=== PATIENT | female | born 1950 | race Caucasian/White ===

== ENCOUNTER 2017-05-04 14:17 | Emergency (ER) | payer MEDICARE, OTHER ==
[2017-05-04] MEDS ORDERED: Sodium Chloride 0.9% 10 ML Syringe FLUSH PRN (14:28)
[2017-05-04 14:29] VITALS: BP 149/91
--- NOTE | 2017-05-04 14:48 | CT ---
Head CT Technique: Multiple axial sections through the brain were obtained. Intravenous contrast was not utilized. Comparison: No previous intracranial imaging. Findings: Ventricles along with basal cisterns and sulci over convexities are mildly prominent. Slight basal ganglia calcification is seen. No other abnormal parenchymal densities are seen. No evidence of intracranial hemorrhage. No midline shift or mass effect is seen. Bone window settings were reviewed which shows no discrete calvarial abnormality. Visualized sinuses are clear. Impression: 1. Minimal atrophy and slight basal ganglia calcification as an incidental note. 2. Nothing acute is appreciated on noncontrast head CT exam. Diagnostic code #2
--- NOTE | 2017-05-04 15:09 | EDM.PDOC ---
ED HPI GENERAL MEDICAL PROBLEM - General Chief Complaint: Neurological Problem Stated Complaint: RIGHT ARM NUMBNESS Time Seen by Provider: 05/04/17 14:23 Source of Information: Reports: Patient, RN Notes Reviewed - History of Present Illness INITIAL COMMENTS - FREE TEXT/NARRATIVE: 66-year-old lady has been transferred here from [facility] for evaluation of numbness and weakness of her right hand. She has had numbness of the right hand for the last 2 days, she does have chronic weakness of the right hand and upper extremity from "a stroke suffered about 8 months ago. She feels that the hand also is weaker the last 2 days then prior to that. She does have mild headache today. She states she has had headaches that come and go. She is not having acute visual difficulty. No speech difficulty. She states she does have some very chronic right lower extremity weakness but not any worse than usual. She did see her provider at the clinic this afternoon. He did consult with neurosurgery at [facility] regarding urgent transfer. They would be glad to accept her in transfer but the current weather with near blizzard conditions does not allow that at this time. Headache Pain Score (Numeric/FACES): 4 - Related Data Allergies Allergy/AdvReac Type Severity Reaction Status Date / Time Penicillins Allergy Severe Rash Verified 01/24/14 09:39 diphenhydramine HCl AdvReac Severe Disorientat Verified 01/24/14 09:39 [From Benadryl] ion prochlorperazine edisylate AdvReac Severe Muscle Verified 01/24/14 09:39 [From Compazine] Aches prochlorperazine maleate AdvReac Severe Muscle Verified 01/24/14 09:39 [From Compazine] Aches Home Meds: Home Meds Albuterol Sulfate [Albuterol Sulfate HFA] 1 puff INH Q4H PRN 01/02/14 [History] Albuterol/Ipratropium [DuoNeb 3.0-0.5 MG/3 ML] 1 ampule INH Q6H PRN 01/02/14 [ History] Cholecalciferol (Vitamin D3) [Vitamin D3] 1,000 units PO DAILY 01/02/14 [History ] Citalopram Hydrobromide [Celexa] 40 mg PO DAILY 01/02/14 [History] ClonazePAM [KlonoPIN] 1 mg PO BEDTIME 01/02/14 [History] Fexofenadine [Kat] 180 mg PO DAILY PRN 01/02/14 [History] Fluticasone Propionate [Flonase] 1 spray ARINA BID 01/02/14 [History] Hydrocodone/Acetaminophen [Hydrocodone-Acetaminophen 5-325] 1 tab PO Q6H PRN 02/05 [History] Ketotifen [Ketotifen 0.025% Ophth Soln] 1 drop EYEBOTH BID 01/02/14 [History] Levothyroxine 25 mcg PO DAILY 01/02/14 [History] Mometasone/Formoterol [Dulera 200 MCG/5 MCG] 2 puff INH BID 01/02/14 [History] Montelukast [Singulair] 10 mg PO BEDTIME 01/02/14 [History] Pantoprazole [ProTONIX] 40 mg PO BID 01/02/14 [History] Simvastatin [Zocor] 80 mg PO BEDTIME 01/02/14 [History] traZODone 50 mg PO BEDTIME 01/02/14 [History] Ferrous Sulfate 325 mg PO BIDM 01/21/14 [History] Furosemide [Lasix] 60 mg PO DAILY 01/21/14 [History] Magnesium Oxide 400 mg PO BID 01/21/14 [History] Potassium Chloride [Klor-Con 10] 10 meq PO DAILY 01/21/14 [History] Past Medical History Respiratory History: Reports: Asthma, COPD Gastrointestinal History: Reports: GERD Musculoskeletal History: Reports: Arthritis Neurological History: Reports: TIA Endocrine/Metabolic History: Reports: Diabetes, Type II, Hypothyroidism - Past Surgical History GI Surgical History: Reports: Cholecystectomy Neurological Surgical History: Reports: Other (See Below) Other Neurological Surgeries/Procedures: stent placement 3 weeks ago Social & Family History - Tobacco Use Smoking Status *Q: Never Smoker Years of Tobacco use: 30 Used Tobacco, but Quit: Yes Month Tobacco Last Used: 3 yrs ago Second Hand Smoke Exposure: No - Caffeine Use Caffeine Use: Reports: Coffee - Alcohol Use Days Per Week of Alcohol Use: 0 Number of Drinks Per Day: 0 Total Drinks Per Week: 0 - Recreational Drug Use Recreational Drug Use: No Drug Use in Last 12 Months: No ED ROS GENERAL - Review of Systems Review Of Systems: See Below Constitutional: Denies: Fever, Chills, Diaphoresis HEENT: Denies: Sinus Problem, Throat Pain, Vertigo, Vision Change Respiratory: Denies: Shortness of Breath, Pleuritic Chest Pain Cardiovascular: Denies: Chest Pain, Palpitations, Syncope GI/Abdominal: Denies: Abdominal Pain, Nausea, Vomiting Musculoskeletal: Denies: Arm Pain, Back Pain Skin: Denies: Rash Neurological: Reports: Headache, Numbness (Comes and goes right hand and distal forearm for the last 3 days), Tingling (R hand and distal forearm), Weakness ( Right hand and arm), Gait Disturbance (Patient states that her right leg is weaker than normal, "I have been shuffling around"). Denies: Change in Speech Psychiatric: Reports: No Symptoms ED EXAM, NEURO - Physical Exam Exam: See Below General Appearance: Alert, No Apparent Distress Eye Exam: Bilateral Eye: PERRL Nose: Normal Inspection Throat/Mouth: Normal Inspection, Normal Oropharynx Head Exam: Atraumatic. No: Facial Swelling Neck: Supple Respiratory/Chest: No Respiratory Distress, Lungs Clear, Normal Breath Sounds Cardiovascular: Regular Rate, Rhythm GI/Abdominal: Soft, Non-Tender Neurological: Alert, Oriented x 3, Other (Mild weakness with right hand grasp at this time, good flexor strength right biceps, mild ataxia with finger-to- nose testing right hand compared to the left, can lift right hand and arm off of the caught without difficulty at this time, no demonstrable lower extremity weakness at this time.) Back Exam: Normal Inspection Extremities: Normal Inspection, Normal Range of Motion. No: Leg Pain Skin Exam: Warm, Dry, Normal Color Course - Vital Signs Last Recorded V/S: Last Vital Signs Temp 98 F 05/04/17 14:26 Pulse 94 05/04/17 14:26 Resp 21 H 05/04/17 14:26 BP 149/91 H 05/04/17 14:26 Pulse Ox 96 05/04/17 14:26 - Orders/Labs/Meds Labs: Laboratory Tests 05/04/17 05/04/17 05/04/17 Range/Units 14:26 14:30 14:30 WBC 5.16 (3.98-10.04) K/mm3 RBC 5.02 (3.98-5.22) M/mm3 Hgb 13.3 (11.2-15.7) gm/L Hct 41.8 (34.1-44.9) % MCV 83.3 (79.4-94.8) fl MCH 26.5 (25.6-32.2) pg MCHC 31.8 L (32.2-35.5) g/dl RDW Std Deviation 41.6 (36.4-46.3) fL Plt Count 233 (182-369) K/mm3 MPV 10.9 (9.4-12.3) fl Neut % (Auto) 70.7 (34.0-71.1) % Lymph % (Auto) 23.1 (19.3-51.7) % [place]quois % (Auto) 6.2 (4.7-12.5) % Eos % (Auto) 0 L (0.7-5.8) Baso % (Auto) 0.0 L (0.1-1.2) % Neut # (Auto) 3.65 (1.56-6.13) K/mm3 Lymph # (Auto) 1.19 (1.18-3.74) K/mm3 [place] # (Auto) 0.32 (0.24-0.36) K/mm3 Eos # (Auto) 0.00 L (0.04-0.36) K/mm3 Baso # (Auto) 0.00 L (0.01-0.08) K/mm3 Sodium 142 (136-145) mEq/L Potassium 3.1 L (3.5-5.1) mEq/L Chloride 101 (98-107) mEq/L Carbon Dioxide 30 (21-32) mEq/L Anion Gap 14.1 (5-15) BUN 23 H (7-18) mg/dL Creatinine 1.7 H (0.55-1.02) mg/dL Est Cr Clr Drug Dosing 28.87 mL/min Estimated GFR (MDRD) 30 (>60) mL/min BUN/Creatinine Ratio 13.5 L (14-18) Glucose 181 H (80-115) mg/dL POC Glucose 245 H (80-115) mg/dL Calcium 10.0 (8.5-10.1) mg/dL Total Bilirubin 0.5 (0.2-1.0) mg/dL AST 16 (15-37) U/L ALT 29 (14-59) U/L Alkaline Phosphatase 114 (46-116) U/L Total Protein 8.4 H (6.4-8.2) g/dl Albumin 4.5 (3.4-5.0) g/dl Globulin 3.9 gm/dL Albumin/Globulin Ratio 1.2 (1-2) Meds: Medications Discontinued Medications Generic Name Dose Route Start Last Admin Trade Name Martínezq PRN Reason Stop Dose Admin Sodium Chloride 10 ml 05/04/17 14:28 05/04/17 14:37 Saline Flush FLUSH 10 ml ASDIRECTED PRN Administration Keep Vein Open - Re-Assessments/Exams Free Text/Narrative Re-Assessment/Exam: 05/04/17 16:20. This was called as a stroke alert. I did see patient upon arrival to ED. CT of the head did come back normal, no hemorhage. We were just notified about 20 minutes ago that the [facility] flight team is now able to fly and will be landing at the [place] [facility] shortly. I have visited with Dr. Khan, Neurosurgeon property economist for [facility] who does accept patient in transfer. Therefore we will be transferring her out shortly. 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 Labs are as documented, relatively okay with potassium mildly low. 05/05/17 17:41 05/05/17 17:41 Departure - Departure Time of Disposition: 16:00 Disposition: DC/Tfer to Acute Hospital 02 Condition: Fair Clinical Impression: CVA (cerebral vascular accident) Qualifiers: CVA mechanism: unspecified Qualified Code(s): I63.9 - Cerebral infarction, unspecified - Discharge Information Referrals: Alpesh Ronquillo MD [Primary Care Provider] - Forms: ED Department Discharge
--- NOTE | 2017-05-04 16:37 | US ---
Carotid ultrasound: Duplex and color flow imaging was obtained of the carotid arteries. No definite plaque is identified. Left ICA is tortuous. Right and left ICA/ECA are poorly seen. Velocity measurements Right side: CCA has a peak systolic velocity of 0.81 m/s. ICA has a peak systolic velocity of 0.66 m/s and peak end-diastolic velocity of 0.25 m/s. ECA has a peak systolic velocity of 0.43 m/s. Vertebral artery has a peak systolic velocity of 0.44 m/s. ICA/CCA ratio 0.8. Left side: CCA has a peak systolic velocity of 0.85 m/s. ICA has a peak systolic velocity of 1.06 m/s and peak end-diastolic velocity of 0.30 m/s. ECA has a peak systolic velocity of 0.49 m/s. Vertebral artery has a peak systolic velocity of 0.44 m/s. ICA/CCA ratio is 1.25. Impression: 1. No definite plaque but arteries are not optimally seen. Velocity measurements correspond to stenosis in the range of 1-49%. If further evaluation is needed for carotid or vertebral artery stenosis, MRA angiogram could then be considered. Diagnostic code #1
== END 2017-05-04 17:30 ==
LOC: JD.ED 14:17
DX: I63.9 Cerebral infarction, unspecified (principal); E11.9 Type 2 diabetes mellitus without complications; Z88.0 Allergy status to penicillin; Z88.8 Allergy status to other drugs, medicaments and biological substances; Z79.899 Other long term (current) drug therapy
CPT/HCPCS: 36415; 70450; 80053; 82962; 85025; 93880; 99285; J7050; 99284

== ENCOUNTER 2018-05-11 11:22 | Emergency (ER) | payer MEDICARE, OTHER ==
[2018-05-11 11:34] VITALS: BP 147/82
--- NOTE | 2018-05-11 12:27 | EDM.PDOC ---
ED HPI GENERAL MEDICAL PROBLEM - General Source of Information: Reports: Patient, RN Notes Reviewed History Limitations: Reports: No Limitations Right Frontal Headache Pain Score (Numeric/FACES): 10 <Dilcia David - Last Filed: 05/11/18 12:19> <Katelyn Cabrales - Last Filed: 05/11/18 22:37> - General Chief Complaint: Head Injury Stated Complaint: FELL HIT HEAD Time Seen by Provider: 05/11/18 11:55 - History of Present Illness INITIAL COMMENTS - FREE TEXT/NARRATIVE: Dawna Tapia" is a 67 year old female who presents with worsening headache , nausea, and dizziness after an unwitnessed fall 2 days ago. Patient states that she stood up to go to the bathroom, and "everything went black". She fell onto carpet face down. She is unsure how long she was unconscious, and it took her about ten minutes to compose herself. Patient lives alone. She was not incontinent of stool or urine. She has since complained of right sided headache and parietal tenderness, stumbling, a sensation that the room is spinning whenever she moves or changes positions and associated nausea, but this subsides when laying flat. She feels that her symptoms are worsening, especially since this morning. She denies any fever, chills, nightsweats, URI symptoms, diarrhea. She has a history of strokes and TIA, and has some baseline weakness of her right side, but denies that it is any worse than usual. She also talks about a stent placed in her head that was then radiated- she is due to follow up with a CTA of her head this summer with her physicians in [place] at [place]. (Dilcia David) I have seen the patient and agree with the HPI as documented by PILAR Nichols. (Katelyn Cabrales) - Related Data Allergies Allergy/AdvReac Type Severity Reaction Status Date / Time Penicillins Allergy Severe Rash Verified 01/24/14 09:39 diphenhydramine HCl AdvReac Severe Disorientat Verified 01/24/14 09:39 [From Benadryl] ion prochlorperazine edisylate AdvReac Severe Muscle Verified 01/24/14 09:39 [From Compazine] Aches prochlorperazine maleate AdvReac Severe Muscle Verified 01/24/14 09:39 [From Compazine] Aches Home Meds: Home Meds Albuterol Sulfate [Albuterol Sulfate HFA] 1 puff INH Q4H PRN 01/02/14 [History] Albuterol/Ipratropium [DuoNeb 3.0-0.5 MG/3 ML] 1 ampule INH Q6H PRN 01/02/14 [ History] Cholecalciferol (Vitamin D3) [Vitamin D3] 1,000 units PO DAILY 01/02/14 [History ] Citalopram Hydrobromide [Celexa] 40 mg PO DAILY 01/02/14 [History] ClonazePAM [KlonoPIN] 1 mg PO BEDTIME 01/02/14 [History] Fexofenadine [Kat] 180 mg PO DAILY PRN 01/02/14 [History] Fluticasone Propionate [Flonase] 1 spray ARINA BID 01/02/14 [History] Hydrocodone/Acetaminophen [Hydrocodone-Acetaminophen 5-325] 1 tab PO Q6H PRN 02/05 [History] Ketotifen [Ketotifen 0.025% Ophth Soln] 1 drop EYEBOTH BID 01/02/14 [History] Levothyroxine 25 mcg PO DAILY 01/02/14 [History] Mometasone/Formoterol [Dulera 200 MCG/5 MCG] 2 puff INH BID 01/02/14 [History] Montelukast [Singulair] 10 mg PO BEDTIME 01/02/14 [History] Pantoprazole [ProTONIX] 40 mg PO BID 01/02/14 [History] Simvastatin [Zocor] 80 mg PO BEDTIME 01/02/14 [History] traZODone 50 mg PO BEDTIME 01/02/14 [History] Ferrous Sulfate 325 mg PO BIDM 01/21/14 [History] Furosemide [Lasix] 60 mg PO DAILY 01/21/14 [History] Magnesium Oxide 400 mg PO BID 01/21/14 [History] Potassium Chloride [Klor-Con 10] 10 meq PO DAILY 01/21/14 [History] Past Medical History HEENT History: Reports: Impaired Vision Respiratory History: Reports: Asthma, COPD Gastrointestinal History: Reports: GERD Musculoskeletal History: Reports: Arthritis Neurological History: Reports: TIA, Other (See Below) Other Neuro History: stents placed Psychiatric History: Reports: Anxiety, Depression Endocrine/Metabolic History: Reports: Diabetes, Type II, Hypothyroidism - Infectious Disease History Infectious Disease History: Reports: Influenza, Measles, Mumps, Rubella - Past Surgical History GI Surgical History: Reports: Cholecystectomy Neurological Surgical History: Reports: Other (See Below) Other Neurological Surgeries/Procedures: stent placement 3 weeks ago <Dilcia David - Last Filed: 05/11/18 12:19> Social & Family History - Family History Family Medical History: Noncontributory - Tobacco Use Smoking Status *Q: Former Smoker Used Tobacco, but Quit: Yes Month/Year Tobacco Last Used: 03/2015 - Caffeine Use Caffeine Use: Reports: Coffee, Soda - Recreational Drug Use Recreational Drug Use: No <Dilcia David - Last Filed: 05/11/18 12:19> ED ROS GENERAL - Review of Systems Review Of Systems: See Below Constitutional: Reports: No Symptoms HEENT: Reports: Vertigo Respiratory: Reports: Shortness of Breath (patient states that this is "all the time") Cardiovascular: Reports: Chest Pain (Fleeting, occurred on tuesday. patient not having pain now) Endocrine: Reports: No Symptoms GI/Abdominal: Reports: No Symptoms : Reports: No Symptoms Musculoskeletal: Reports: No Symptoms Skin: Reports: No Symptoms Neurological: Reports: Dizziness, Headache, Syncope, Weakness (right sided ), Gait Disturbance (unsteady). Denies: Numbness, Tingling Psychiatric: Reports: No Symptoms Hematologic/Lymphatic: Reports: No Symptoms Immunologic: Reports: No Symptoms <Dilcia David - Last Filed: 05/11/18 12:19> - Review of Systems Musculoskeletal: Denies: Neck Pain <Katelyn Cabrales - Last Filed: 05/11/18 22:37> ED EXAM, HEAD INJURY - Physical Exam Exam: See Below Exam Limited By: No Limitations General Appearance: Alert, WD/WN, No Apparent Distress Head: Scalp Tenderness (right parietal) Nexus Criteria: No: Posterior, Midline Cervical Tenderness, Evidence of Intoxication, Altered Level of Consciousness, Focal Neurological Deficit, Painful Distraction Injuries Eyes: Bilateral Eye: EOMI (dizziness elicited ), PERRL Neck: Non-Tender, Full Range of Motion, Stiff Neck (with passive ROM) Respiratory: No Respiratory Distress, Lungs Clear, Decreased Breath Sounds Cardiovascular: Regular Rate, Rhythm, No Edema, No Murmur, No Rub GI/Abdominal Exam: Soft, Non-Tender, No Distention Extremities: Normal Inspection, Normal Range of Motion, Normal Capillary Refill Neurologic: delivery tech II-XII nml As Tested, Oriented x 3. No: Facial Droop <Dilcia David - Last Filed: 05/11/18 12:19> - Physical Exam Exam: See Below Exam Limited By: No Limitations General Appearance: Alert, WD/WN, No Apparent Distress Head: Normocephalic Ears: Normal External Exam Nose: Normal Inspection Throat/Mouth: Normal Inspection, Normal Lips, Normal Voice, No Airway Compromise Skin: Normal Color, Warm/Dry - Javier Coma Score Best Eye Response ([place]): (4) Open Spontaneously Best Verbal Response ([place]): (5) Oriented Best Motor Response ([place]): (6) Obeys Commands <Katelyn Cabrales - Last Filed: 05/11/18 22:37> EKG INTERPRETATION <Dilcia David - Last Filed: 05/11/18 12:19> EKG Date: 05/11/18 Time: 12:50 Rhythm: NSR Rate (Beats/Min): 95 [place]: Normal P-Wave: Present QRS: Normal ST-T: Normal QT: Normal <Katelyn Cabrales - Last Filed: 05/11/18 22:37> EKG Interpretation Comments: NSR at 95. Q waves in AVL. T wave inversion in AVL. Prolonged QT with a QTc of 509. First degree AV block. Reviewed by myself and Dr. Pearson. (Katelyn Cabrales) Course <Dilcia David - Last Filed: 05/11/18 12:19> <Katelyn Cabrales - Last Filed: 05/11/18 22:37> - Vital Signs Last Recorded V/S: Last Vital Signs Temp 97.1 F 05/11/18 11:29 Pulse 107 H 05/11/18 11:29 Resp 16 05/11/18 11:29 BP 147/82 H 05/11/18 11:29 Pulse Ox 92 L 05/11/18 11:29 - Orders/Labs/Meds Orders: Active Orders 24 hr Category Date Time Status EKG Documentation Completion [RC] ASDIRECTED Care 05/11/18 12:30 Active Peripheral IV Care [RC] . DIRECTED Care 05/11/18 12:34 Active Peripheral IV Insertion Adult [OM.PC] Routine Oth 05/11/18 12:34 Ordered EKG 12 Lead [EK] Stat Ther 05/11/18 12:30 Ordered Labs: Laboratory Tests 05/11/18 05/11/18 05/11/18 Range/Units 13:00 13:06 13:06 WBC 4.60 (3.98-10.04) K/mm3 RBC 4.72 (3.98-5.22) M/mm3 Hgb 12.3 (11.2-15.7) gm/L Hct 39.5 (34.1-44.9) % MCV 83.7 (79.4-94.8) fl MCH 26.1 (25.6-32.2) pg MCHC 31.1 L (32.2-35.5) g/dl RDW Std Deviation 42.7 (36.4-46.3) fL Plt Count 251 (182-369) K/mm3 MPV 10.4 (9.4-12.3) fl Neut % (Auto) 70.5 (34.0-71.1) % Lymph % (Auto) 22.8 (19.3-51.7) % [place] % (Auto) 6.3 (4.7-12.5) % Eos % (Auto) 0.2 L (0.7-5.8) Baso % (Auto) 0.2 (0.1-1.2) % Neut # (Auto) 3.24 (1.56-6.13) K/mm3 Lymph # (Auto) 1.05 L (1.18-3.74) K/mm3 [place] # (Auto) 0.29 (0.24-0.36) K/mm3 Eos # (Auto) 0.01 L (0.04-0.36) K/mm3 Baso # (Auto) 0.01 (0.01-0.08) K/mm3 PT 9.9 (9.5-12.1) SECONDS INR < 0.93 APTT 25 (24-31) SECONDS D-Dimer, Quantitative (0.19-0.50) mg/L Sodium (136-145) mEq/L Potassium (3.5-5.1) mEq/L Chloride (98-107) mEq/L Carbon Dioxide (21-32) mEq/L Anion Gap (5-15) BUN (7-18) mg/dL Creatinine (0.55-1.02) mg/dL Est Cr Clr Drug Dosing mL/min Estimated GFR (MDRD) (>60) mL/min BUN/Creatinine Ratio (14-18) Glucose (80-115) mg/dL Calcium (8.5-10.1) mg/dL Total Bilirubin (0.2-1.0) mg/dL AST (15-37) U/L ALT (14-59) U/L Alkaline Phosphatase (46-116) U/L Troponin I (0.00-0.056) ng/mL Total Protein (6.4-8.2) g/dl Albumin (3.4-5.0) g/dl Globulin gm/dL Albumin/Globulin Ratio (1-2) Urine Color Yellow (Yellow) Urine Appearance Clear (Clear) Urine pH 7.0 (5.0-8.0) Ur Specific [place] 1.015 (1.005-1.030) Urine Protein Negative (Negative) Urine Glucose (UA) Negative (Negative) Urine Ketones Negative (Negative) Urine Occult Blood Negative (Negative) Urine Nitrite Negative (Negative) Urine Bilirubin Negative (Negative) Urine Urobilinogen 0.2 (0.2-1.0) Ur Leukocyte Esterase 1+ H (Negative) Urine RBC Not seen (0-5) /hpf Urine WBC 0-5 (0-5) /hpf Ur Epithelial Cells 0-5 (0-5) /hpf Urine Bacteria Rare (FEW) /hpf Urine Mucus Not seen (FEW) /hpf 05/11/18 05/11/18 Range/Units 13:06 13:06 WBC (3.98-10.04) K/mm3 RBC (3.98-5.22) M/mm3 Hgb (11.2-15.7) gm/L Hct (34.1-44.9) % MCV (79.4-94.8) fl MCH (25.6-32.2) pg MCHC (32.2-35.5) g/dl RDW Std Deviation (36.4-46.3) fL Plt Count (182-369) K/mm3 MPV (9.4-12.3) fl Neut % (Auto) (34.0-71.1) % Lymph % (Auto) (19.3-51.7) % [place] % (Auto) (4.7-12.5) % Eos % (Auto) (0.7-5.8) Baso % (Auto) (0.1-1.2) % Neut # (Auto) (1.56-6.13) K/mm3 Lymph # (Auto) (1.18-3.74) K/mm3 [place] # (Auto) (0.24-0.36) K/mm3 Eos # (Auto) (0.04-0.36) K/mm3 Baso # (Auto) (0.01-0.08) K/mm3 PT (9.5-12.1) SECONDS INR APTT (24-31) SECONDS D-Dimer, Quantitative 0.40 (0.19-0.50) mg/L Sodium 143 (136-145) mEq/L Potassium 3.9 (3.5-5.1) mEq/L Chloride 104 (98-107) mEq/L Carbon Dioxide 29 (21-32) mEq/L Anion Gap 13.9 (5-15) BUN 26 H (7-18) mg/dL Creatinine 1.5 H (0.55-1.02) mg/dL Est Cr Clr Drug Dosing 32.29 mL/min Estimated GFR (MDRD) 35 (>60) mL/min BUN/Creatinine Ratio 17.3 (14-18) Glucose 111 (80-115) mg/dL Calcium 9.6 (8.5-10.1) mg/dL Total Bilirubin 0.3 (0.2-1.0) mg/dL AST 12 L (15-37) U/L ALT 23 (14-59) U/L Alkaline Phosphatase 89 (46-116) U/L Troponin I < 0.017 (0.00-0.056) ng/mL Total Protein 7.2 (6.4-8.2) g/dl Albumin 3.7 (3.4-5.0) g/dl Globulin 3.5 gm/dL Albumin/Globulin Ratio 1.1 (1-2) Urine Color (Yellow) Urine Appearance (Clear) Urine pH (5.0-8.0) Ur Specific [place] (1.005-1.030) Urine Protein (Negative) Urine Glucose (UA) (Negative) Urine Ketones (Negative) Urine Occult Blood (Negative) Urine Nitrite (Negative) Urine Bilirubin (Negative) Urine Urobilinogen (0.2-1.0) Ur Leukocyte Esterase (Negative) Urine RBC (0-5) /hpf Urine WBC (0-5) /hpf Ur Epithelial Cells (0-5) /hpf Urine Bacteria (FEW) /hpf Urine Mucus (FEW) /hpf Meds: Medications Discontinued Medications Generic Name Dose Route Start Last Admin Trade Name Freq PRN Reason Stop Dose Admin Sodium Chloride 10 ml 05/11/18 12:34 05/11/18 13:17 Saline Flush FLUSH 10 ml ASDIRECTED PRN Administration Keep Vein Open - Radiology Interpretation Free Text/Narrative:: Chest: Portable view of the chest was obtained. Comparison: Prior chest x-ray of 11/17/13. Large hiatal hernia is seen. Heart size is normal. Tortuous thoracic aorta is seen. Lungs are clear with no acute parenchymal change. Impression: 1. Large hiatal hernia. 2. Nothing acute is appreciated on portable chest x-ray. Head CT Technique: Multiple axial sections through the brain were obtained. Intravenous contrast was not utilized. Findings: Small scalp hematoma suggested to the right frontal region. Ventricles along with basal cisterns and sulci over the convexities are mildly prominent. No abnormal parenchymal densities are seen. No evidence of intracranial hemorrhage. No midline shift or mass effect is seen. Minimal basal ganglia calcification is seen. Bone window settings were reviewed and show the visualized sinuses to appear clear. No acute calvarial abnormality is seen. Impression: 1. Small scalp hematoma within the right frontal region. 2. Mild generalized atrophy. 3. No acute intracranial abnormality is identified. (Katelyn Cabrales) - Re-Assessments/Exams Free Text/Narrative Re-Assessment/Exam: 05/11/18 14:37 I have seen the patient and agree with the HPI, ROS and PE as documented by PILAR Nichols. Review of records show the patient had carotid artery ultrasound done about 1 year ago. No significant stenosis. I reviewed the labs, EKG and imaging with the patient. She feels good and would like to go home at this time. We'll discharge home. Discharge instructions as documented. (Katelyn Cabrales) Departure <Dilcia David - Last Filed: 05/11/18 12:19> - Departure Time of Disposition: 14:38 Condition: Fair - Discharge Information *PRESCRIPTION DRUG MONITORING PROGRAM REVIEWED*: No *COPY OF PRESCRIPTION DRUG MONITORING REPORT IN PATIENT NAVARRO: No <Katelyn Cabrales - Last Filed: 05/11/18 22:37> - Departure Disposition: Home, Self-Care 01 Clinical Impression: Concussion injury of brain, Hematoma, Syncope - Discharge Information Instructions: Head Injury, Adult, [id number], Syncope, [id number] Referrals: Alpesh Ronquillo MD [Primary Care Provider] - Forms: ED Department Discharge Additional Instructions: Rest. make sure you are drinking plenty of fluids. Follow-up with your primary care provider within 2 weeks for a recheck of your symptoms. Please return to the ER if your symptoms change or worsen. - My Orders Last 24 Hours: My Active Orders 05/11/18 12:30 EKG Documentation Completion [RC] ASDIRECTED EKG 12 Lead [EK] Stat 05/11/18 12:34 Peripheral IV Care [RC] . DIRECTED Peripheral IV Insertion Adult [OM.PC] Routine - Assessment/Plan Last 24 Hours: My Active Orders 05/11/18 12:30 EKG Documentation Completion [RC] ASDIRECTED EKG 12 Lead [EK] Stat 05/11/18 12:34 Peripheral IV Care [RC] . DIRECTED Peripheral IV Insertion Adult [OM.PC] Routine
[2018-05-11] MEDS ORDERED: Sodium Chloride 0.9% 10 ML Syringe FLUSH PRN (12:34)
--- NOTE | 2018-05-11 13:23 | CT ---
Head CT Technique: Multiple axial sections through the brain were obtained. Intravenous contrast was not utilized. Findings: Small scalp hematoma suggested to the right frontal region. Ventricles along with basal cisterns and sulci over the convexities are mildly prominent. No abnormal parenchymal densities are seen. No evidence of intracranial hemorrhage. No midline shift or mass effect is seen. Minimal basal ganglia calcification is seen. Bone window settings were reviewed and show the visualized sinuses to appear clear. No acute calvarial abnormality is seen. Impression: 1. Small scalp hematoma within the right frontal region. 2. Mild generalized atrophy. 3. No acute intracranial abnormality is identified. Diagnostic code #2
--- NOTE | 2018-05-11 14:27 | CR ---
Chest: Portable view of the chest was obtained. Comparison: Prior chest x-ray of 11/17/13. Large hiatal hernia is seen. Heart size is normal. Tortuous thoracic aorta is seen. Lungs are clear with no acute parenchymal change. Impression: 1. Large hiatal hernia. 2. Nothing acute is appreciated on portable chest x-ray. Diagnostic code #2
== END 2018-05-11 14:55 | disposition home or self-care (01) ==
LOC: JD.ED 11:22
DX: S06.0X9A Concussion with loss of consciousness of unspecified duration, initial encounter (principal); R55 Syncope and collapse; K21.9 Gastro-esophageal reflux disease without esophagitis; J44.9 Chronic obstructive pulmonary disease, unspecified; F41.9 Anxiety disorder, unspecified; F32.9 Major depressive disorder, single episode, unspecified; E03.9 Hypothyroidism, unspecified; Z87.891 Personal history of nicotine dependence; Z86.73 Personal history of transient ischemic attack (TIA), and cerebral infarction without residual deficits; Z88.0 Allergy status to penicillin; Z88.8 Allergy status to other drugs, medicaments and biological substances; Z79.899 Other long term (current) drug therapy; Z95.5 Presence of coronary angioplasty implant and graft; W18.30XA Fall on same level, unspecified, initial encounter
CPT/HCPCS: 36415; 70450; 70450-26; 71045; 71045-26; 80053; 81001; 84484; 85025; 85379; 85610; 85730; 93005; 99284-25

== ENCOUNTER 2020-05-09 14:28 | Emergency (ER) | payer MEDICARE, OTHER ==
[2020-05-09 15:08] VITALS: BP 123/85; PULSE 90
[2020-05-09] MEDS ORDERED: HYDROmorphone 0.5 MG/0.5 ML Syringe IM ONE (15:10)
--- NOTE | 2020-05-09 15:14 | EDM.PDOC ---
ED HPI GENERAL MEDICAL PROBLEM - General Chief Complaint: Trauma Stated Complaint: FALL YESTERDAY/MULTIPLE INJURIES Time Seen by Provider: 05/09/20 14:50 Source of Information: Reports: Patient, Family (son), RN Notes Reviewed History Limitations: Reports: No Limitations - History of Present Illness INITIAL COMMENTS - FREE TEXT/NARRATIVE: Patient is a 69-year-old female who presents to the ED today for her multiple injuries after her fall. She notes that she was walking outside yesterday, missed stepped near a curb and ended up falling onto her left side. She notes that her left ribs hurt at that time, she skinned her left knee, and developed a bruise on the anterior portion of her left wrist today. She does note while she was moving about today, she heard or felt a pop in her left chest, and had intense pain after this that she would characterize at a 10 out of 10. She did not take any pain medication prior to coming to the ER. Patient did not hit her head at the time of the fall, nor did she lose consciousness. She does have a history of a stroke, and her son notes that she has had some problems with instability after this. He believes that she had some sort of stents placed, but is not sure. She sees a neurologist in [place], and her primary care provider is Dr. Ronquillo. Patient denies any other sick-like symptoms, fever/chills, cough/shortness of breath, nausea/vomiting/diarrhea. Patient notes she did not feel dizzy or felt off balance prior to the fall yesterday. She simply missed stepped off the curb. Left Middle Trunk Pain Score (Numeric/FACES): 10 - Related Data Allergies Allergy/AdvReac Type Severity Reaction Status Date / Time Penicillins Allergy Severe Rash Verified 05/09/20 15:08 diphenhydramine HCl AdvReac Severe Disorientat Verified 05/09/20 15:08 [From Benadryl] ion prochlorperazine edisylate AdvReac Severe Muscle Verified 05/09/20 15:08 [From Compazine] Aches prochlorperazine maleate AdvReac Severe Muscle Verified 05/09/20 15:08 [From Compazine] Aches Home Meds: Home Meds Albuterol Sulfate [Albuterol Sulfate HFA] 1 puff INH Q4H PRN 01/02/14 [History] Albuterol/Ipratropium [DuoNeb 3.0-0.5 MG/3 ML] 1 ampule INH Q6H PRN 01/02/14 [History] Cholecalciferol (Vitamin D3) [Vitamin D3] 1,000 units PO DAILY 01/02/14 [History] Citalopram Hydrobromide [Celexa] 40 mg PO DAILY 01/02/14 [History] ClonazePAM [KlonoPIN] 1 mg PO BEDTIME 01/02/14 [History] Fexofenadine [Kat] 180 mg PO DAILY PRN 01/02/14 [History] Fluticasone Propionate [Flonase] 1 spray ARINA BID 01/02/14 [History] Hydrocodone/Acetaminophen [Hydrocodone-Acetaminophen 5-325] 1 tab PO Q6H PRN 01/02/14 [History] Ketotifen [Ketotifen 0.025% Ophth Soln] 1 drop EYEBOTH BID 01/02/14 [History] Levothyroxine 25 mcg PO DAILY 01/02/14 [History] Mometasone/Formoterol [Dulera 200 MCG/5 MCG] 2 puff INH BID 01/02/14 [History] Montelukast [Singulair] 10 mg PO BEDTIME 01/02/14 [History] Pantoprazole [ProTONIX] 40 mg PO BID 01/02/14 [History] Simvastatin [Zocor] 80 mg PO BEDTIME 01/02/14 [History] traZODone 50 mg PO BEDTIME 01/02/14 [History] Ferrous Sulfate 325 mg PO BIDM 01/21/14 [History] Furosemide [Lasix] 60 mg PO DAILY 01/21/14 [History] Magnesium Oxide 400 mg PO BID 01/21/14 [History] Potassium Chloride [Klor-Con 10] 10 meq PO DAILY 01/21/14 [History] Hydrocodone/Acetaminophen [Hydrocodone-Acetamin 5-325 mg] 1 each PO Q6H PRN #20 tablet 05/09/20 [Rx] Past Medical History HEENT History: Reports: Impaired Vision Respiratory History: Reports: Asthma, COPD Gastrointestinal History: Reports: GERD Musculoskeletal History: Reports: Arthritis Neurological History: Reports: TIA, Other (See Below) Other Neuro History: stents placed Psychiatric History: Reports: Anxiety, Depression Endocrine/Metabolic History: Reports: Diabetes, Type II, Hypothyroidism - Infectious Disease History Infectious Disease History: Reports: Influenza, Measles, Mumps, Rubella - Past Surgical History GI Surgical History: Reports: Cholecystectomy Neurological Surgical History: Reports: Other (See Below) Other Neurological Surgeries/Procedures: stents placed in head Social & Family History - Family History Family Medical History: No Pertinent Family History - Caffeine Use Caffeine Use: Reports: Coffee, Soda Review of Systems - Review of Systems Review Of Systems: Comprehensive ROS is negative, except as noted in HPI. ED EXAM, GENERAL - Physical Exam Exam: See Below Exam Limited By: No Limitations General Appearance: Alert, WD/WN, No Apparent Distress Head: Atraumatic, Normocephalic Neck: Normal Inspection, Supple, Non-Tender, Full Range of Motion Respiratory/Chest: No Respiratory Distress, Lungs Clear (pt does take slightly shallow breaths d/t pain in left chest), Normal Breath Sounds, No Accessory Muscle Use, Chest Non-Tender Cardiovascular: Normal Peripheral Pulses, Regular Rate, Rhythm, No Edema Peripheral Pulses: 2+: Radial (L), Radial (R) GI/Abdominal: Normal Bowel Sounds, Soft, Non-Tender, No Distention, No Mass Back Exam: Normal Inspection, Full Range of Motion Extremities: Normal Range of Motion, Normal Capillary Refill, Other (Ecchymosis noted to right anterior wrist, and to left anterior knee surface. Son notes that she bruises easily.) Neurological: Alert, Oriented, Normal Cognition, No Motor/Sensory Deficits Psychiatric: Normal Affect, Normal Mood Skin Exam: Warm, Dry, Intact, No Rash, Ecchymosis (Over left anterior knee surface and right anterior wrist surface.) Course - Vital Signs Last Recorded V/S: Last Vital Signs Temp 96.8 F L 05/09/20 14:54 Pulse 90 05/09/20 14:54 Resp 18 05/09/20 14:54 BP 123/85 05/09/20 14:54 Pulse Ox 94 L 05/09/20 14:54 - Orders/Labs/Meds Meds: Medications Discontinued Medications Generic Name Dose Route Start Last Admin Trade Name Freq PRN Reason Stop Dose Admin Hydromorphone HCl 0.5 mg 05/09/20 15:10 05/09/20 15:21 Dilaudid IM 05/09/20 15:11 0.5 mg ONETIME ONE Administration - Re-Assessments/Exams Free Text/Narrative Re-Assessment/Exam: 05/09/20 15:15 Patient presents to the ED for her fall. Patient is mainly concerned about a rib injury. We will get rib x-rays for today's purposes to give her some pain medication I did offer to do a head CT due to her instability issues, but patient declined at this time. There was bruising noted on her right wrist and left knee as well, patient declined imaging of these areas. 05/09/20 15:54 The patient's rib x-rays do demonstrate a fairly large hiatal hernia. Possible fracture of the anterior fourth and fifth ribs on the left side. This is where she is having pain, we will have her follow-up with Dr. Ronquillo next week, will give her some pain meds for over the weekend. Departure - Departure Time of Disposition: 15:55 Disposition: Home, Self-Care 01 Condition: Good Clinical Impression: Closed rib fracture Qualifiers: Encounter type: initial encounter Rib fracture type: multiple ribs Laterality: left Qualified Code(s): S22.42XA - Multiple fractures of ribs, left side, initial encounter for closed fracture Fall Qualifiers: Encounter type: initial encounter Qualified Code(s): W19.XXXA - Unspecified fall, initial encounter - Discharge Information *PRESCRIPTION DRUG MONITORING PROGRAM REVIEWED*: Yes *COPY OF PRESCRIPTION DRUG MONITORING REPORT IN PATIENT NAVARRO: No Instructions: Rib Fracture, [id number], Pain Medicine Instructions, [id number] Referrals: Alpesh Ronquillo MD [Primary Care Provider] - Forms: ED Department Discharge Additional Instructions: You have been evaluated in the ED for your fall and rib injury. Your x-ray demonstrated a possible fracture of the front side of your fourth and fifth rib. Please use ice as tolerated to the affected area. You may take Tylenol 500 mg or ibuprofen 600mg q6 hrs for pain relief. Please do so until you have a tolerable level of pain with activity. Do not exceed 4000mg Tylenol, Do not exceed 3200mg ibuprofen in a 24 hour time period. You were given a prescription for a strong pain medication, hydrocodone/acetaminophen 5/325, please take 1 tab every 6 hours as needed for pain not relieved by Tylenol or ibuprofen alone. Please note this does contain Tylenol in it, so do not take more than 4000 mg in a 24-hour time span. These medications can be addictive, so please take as few as possible to achieve adequate pain control. These meds can also be quite constipating, recommend that you increase your oral fluid intake and take a stool softener like MiraLAX while taking these medications. Please follow-up with your primary care provider, Dr. Ronquillo, sometime next week, to make sure that your symptoms are getting better as expected. You also have been given an incentive spirometer, this is to help prevent pneumonia, while you are suffering from pain from the rib fractures. You should do 10 repetitions or breaths every hour while awake, please take a deep alarm breath in; hold it for a few seconds, and then let it out. Please return to ED if your symptoms should change or worsen. Sepsis Event Note (ED) - Evaluation Sepsis Screening Result: No Definite Risk - Focused Exam Vital Signs: Vital Signs Temp Pulse Resp BP Pulse Ox 05/09/20 14:54 96.8 F L 90 18 123/85 94 L
--- NOTE | 2020-05-09 15:47 | CR ---
Chest and bilateral ribs: Frontal view of the chest was obtained as well as 2 views of both sides of the ribs. Comparison: Prior chest x-ray of 05/11/18. Findings: Hernia is identified behind the heart most likely representing hiatal hernia. Lungs otherwise are clear. Previous cholecystectomy is noted. On the AP view there is a slight deformity being seen within the anterior left fourth and fifth ribs which could possibly represent acute fractures. Heart size and mediastinum appear within normal limits. Impression: 1. Fairly large hiatal hernia. 2. Nothing acute is seen on chest x-ray. 3. Possible fracture of the anterior fourth and fifth ribs on the left side. Diagnostic code #3
== END 2020-05-09 16:30 | disposition home or self-care (01) ==
LOC: JD.ED 14:28
DX: S22.42XA Multiple fractures of ribs, left side, initial encounter for closed fracture (principal); S60.212A Contusion of left wrist, initial encounter; S80.02XA Contusion of left knee, initial encounter; J44.9 Chronic obstructive pulmonary disease, unspecified; K21.9 Gastro-esophageal reflux disease without esophagitis; E03.9 Hypothyroidism, unspecified; E11.9 Type 2 diabetes mellitus without complications; Z88.0 Allergy status to penicillin; Z88.8 Allergy status to other drugs, medicaments and biological substances; Z79.899 Other long term (current) drug therapy; W01.0XXA Fall on same level from slipping, tripping and stumbling without subsequent striking against object, initial encounter
CPT/HCPCS: 71111; 96372; 99283; J1170; 99284

== ENCOUNTER 2020-09-25 09:41 | Emergency (ER) | payer MEDICARE, OTHER ==
[2020-09-25 09:59] VITALS: BP 125/60; PULSE 69
[2020-09-25] MEDS ORDERED: Sodium Chloride 0.9% 10 ML Syringe FLUSH PRN (10:25)
--- NOTE | 2020-09-25 10:59 | CT ---
Head CT Technique: Multiple axial sections through the brain were obtained. Reconstructed coronal and sagittal images were obtained. Comparison: Prior head CT study of 05/11/18. Findings: Ventricles along with basal cisterns and sulci over the convexities are mildly prominent. No abnormal parenchymal densities are seen. No evidence of intracranial hemorrhage. Curvilinear density is noted posteriorly which may relate to previous surgery. Bone window settings were reviewed which show no acute calvarial abnormality. Visualized mastoid and paranasal sinuses show nothing acute. Impression: 1. Presumed surgery posteriorly within the brain. This is a stable finding. 2. Mild generalized atrophy. 3. No acute intracranial abnormality is appreciated on noncontrast head CT study. Diagnostic code #2
--- NOTE | 2020-09-25 11:08 | CR ---
Chest: Portable view of the chest was obtained. Comparison: Prior chest x-rays of 05/09/20 and 05/11/18. Fairly large hiatal hernia is noted. Heart size is not enlarged. Upper mediastinum is within normal limits. Lungs are clear with no acute parenchymal change. No acute osseous abnormality is appreciated. Impression: 1. Hiatal hernia. 2. Nothing acute is otherwise seen on portable chest x-ray. Diagnostic code #2
--- NOTE | 2020-09-25 13:02 | EDM.PDOC ---
ED HPI GENERAL MEDICAL PROBLEM - General Chief Complaint: Neurological Problem Stated Complaint: MULTIPLE FALLS WITH SYNCOPE Time Seen by Provider: 09/25/20 10:02 Source of Information: Reports: Patient History Limitations: Reports: No Limitations - History of Present Illness INITIAL COMMENTS - FREE TEXT/NARRATIVE: The patient presents with syncope. The patient says for the past few months she has episodes where she passes out. She is out for about a minutes. She always falls to the right side. She this is becoming more frequent. She did not hit her head. She is also having depth perception problems to her right visual field. She has some mild low back pain from the fall. She has no headache, fever, chills, cough, congestion, runny nose, chest pain, shortness of breath, abdominal pain, nausea or vomiting. She says she is more unsteady lately with walking. My nurse does confirm she was a little unsteady on the way back. She has a history of an AVM that was treated at [facility] in [place] over a year ago. She called her neurosurgeon and he recommended she come get evaluated. Onset: Gradual Duration: Week(s): Severity: Moderate Improves with: Reports: None Worsens with: Reports: None Associated Symptoms: Reports: No Other Symptoms Lower Back Pain Score (Numeric/FACES): 9 - Related Data Allergies Allergy/AdvReac Type Severity Reaction Status Date / Time Penicillins Allergy Severe Rash Verified 09/25/20 09:58 diphenhydramine HCl AdvReac Severe Disorientat Verified 09/25/20 09:58 [From Benadryl] ion prochlorperazine edisylate AdvReac Severe Muscle Verified 09/25/20 09:58 [From Compazine] Aches prochlorperazine maleate AdvReac Severe Muscle Verified 09/25/20 09:58 [From Compazine] Aches Home Meds: Home Meds Albuterol Sulfate [Albuterol Sulfate HFA] 1 puff INH Q4H PRN 01/02/14 [History] Albuterol/Ipratropium [DuoNeb 3.0-0.5 MG/3 ML] 1 ampule INH Q6H PRN 01/02/14 [History] Cholecalciferol (Vitamin D3) [Vitamin D3] 1,000 units PO DAILY 01/02/14 [History] Citalopram Hydrobromide [Celexa] 40 mg PO DAILY 01/02/14 [History] ClonazePAM [KlonoPIN] 1 mg PO BEDTIME 01/02/14 [History] Fexofenadine [Kat] 180 mg PO DAILY PRN 01/02/14 [History] Fluticasone Propionate [Flonase] 1 spray ARINA BID 01/02/14 [History] Hydrocodone/Acetaminophen [Hydrocodone-Acetaminophen 5-325] 1 tab PO Q6H PRN 01/02/14 [History] Ketotifen [Ketotifen 0.025% Ophth Soln] 1 drop EYEBOTH BID 01/02/14 [History] Levothyroxine 25 mcg PO DAILY 01/02/14 [History] Mometasone/Formoterol [Dulera 200 MCG/5 MCG] 2 puff INH BID 01/02/14 [History] Montelukast [Singulair] 10 mg PO BEDTIME 01/02/14 [History] Pantoprazole [ProTONIX] 40 mg PO BID 01/02/14 [History] Simvastatin [Zocor] 80 mg PO BEDTIME 01/02/14 [History] traZODone 50 mg PO BEDTIME 01/02/14 [History] Ferrous Sulfate 325 mg PO BIDM 01/21/14 [History] Furosemide [Lasix] 60 mg PO DAILY 01/21/14 [History] Magnesium Oxide 400 mg PO BID 01/21/14 [History] Potassium Chloride [Klor-Con 10] 10 meq PO DAILY 01/21/14 [History] Hydrocodone/Acetaminophen [Hydrocodone-Acetamin 5-325 mg] 1 each PO Q6H PRN #20 tablet 05/09/20 [Rx] Past Medical History HEENT History: Reports: Impaired Vision Respiratory History: Reports: Asthma, COPD Gastrointestinal History: Reports: GERD Musculoskeletal History: Reports: Arthritis Neurological History: Reports: Brain Injury, TIA, Other (See Below) Other Neuro History: stents placed Psychiatric History: Reports: Anxiety, Depression Endocrine/Metabolic History: Reports: Diabetes, Type II, Hypothyroidism - Infectious Disease History Infectious Disease History: Reports: Influenza, Measles, Mumps, Rubella - Past Surgical History HEENT Surgical History: Reports: Oral Surgery GI Surgical History: Reports: Cholecystectomy Neurological Surgical History: Reports: Other (See Below) Other Neurological Surgeries/Procedures: stents placed in head Social & Family History - Family History Family Medical History: No Pertinent Family History - Tobacco Use Tobacco Use Status *Q: Never Tobacco User Second Hand Smoke Exposure: No - Caffeine Use Caffeine Use: Reports: Soda - Recreational Drug Use Recreational Drug Use: No ED ROS GENERAL - Review of Systems Review Of Systems: See Below Constitutional: Reports: No Symptoms HEENT: Reports: No Symptoms Respiratory: Reports: No Symptoms Cardiovascular: Reports: Syncope. Denies: Chest Pain Endocrine: Reports: No Symptoms GI/Abdominal: Reports: No Symptoms : Reports: No Symptoms Musculoskeletal: Reports: No Symptoms ED EXAM, NEURO - Physical Exam Exam: See Below Exam Limited By: No Limitations General Appearance: Alert, No Apparent Distress Ears: Normal External Exam Nose: Normal Inspection Head Exam: Atraumatic, Normocephalic Neck: Normal Inspection, Supple, Non-Tender Respiratory/Chest: No Respiratory Distress, Lungs Clear, Normal Breath Sounds Cardiovascular: Regular Rate, Rhythm, No Edema, No Murmur GI/Abdominal: Soft, Non-Tender, No Organomegaly, No Mass Neurological: Alert, No Motor/Sensory Deficits, Oriented x 3 Back Exam: Normal Inspection Extremities: Normal Inspection #1 Interpretation EKG Date: 09/25/20 Time: 09:54 Rhythm: NSR Rate (Beats/Min): 73 [place]: Normal P-Wave: Present QRS: Normal ST-T: Normal QT: Normal Course - Vital Signs Last Recorded V/S: Last Vital Signs Temp 96.9 F 09/25/20 09:58 Pulse 69 09/25/20 09:58 Resp 16 09/25/20 09:58 BP 125/60 09/25/20 09:58 Pulse Ox 91 L 09/25/20 09:58 - Orders/Labs/Meds Orders: Active Orders 24 hr Category Date Time Status Cardiac Monitoring [RC] . DIRECTED Care 09/25/20 10:25 Active EKG Documentation Completion [RC] STAT Care 09/25/20 10:26 Active Peripheral IV Care [RC] . DIRECTED Care 09/25/20 10:26 Active Sodium Chloride 0.9% [Saline Flush] Med 09/25/20 10:25 Active 10 ml FLUSH ASDIRECTED PRN Peripheral IV Insertion Adult [OM.PC] Stat Oth 09/25/20 10:25 Ordered Medication Orders Sodium Chloride (Sodium Chloride 0.9% 10 Ml Syringe) 10 ml FLUSH ASDIRECTED PRN PRN Reason: Keep Vein Open Last Admin: 09/25/20 10:39 Dose: 10 ml Documented by: TIFFANIE Labs: Laboratory Tests 09/25/20 09/25/20 Range/Units 10:10 10:10 WBC 4.23 (3.98-10.04) K/mm3 RBC 4.42 (3.98-5.22) M/mm3 Hgb 11.2 (11.2-15.7) gm/dl Hct 36.9 (34.1-44.9) % MCV 83.5 (79.4-94.8) fl MCH 25.3 L (25.6-32.2) pg MCHC 30.4 L (32.2-35.5) g/dl RDW Std Deviation 46.0 (36.4-46.3) fL Plt Count 251 (182-369) K/mm3 MPV 10.9 (9.4-12.3) fl Neut % (Auto) 66.7 (34.0-71.1) % Lymph % (Auto) 24.6 (19.3-51.7) % Gage % (Auto) 6.4 (4.7-12.5) % Eos % (Auto) 2.1 (0.7-5.8) Baso % (Auto) 0.0 L (0.1-1.2) % Neut # (Auto) 2.82 (1.56-6.13) K/mm3 Lymph # (Auto) 1.04 L (1.18-3.74) K/mm3 Gage # (Auto) 0.27 (0.24-0.36) K/mm3 Eos # (Auto) 0.09 (0.04-0.36) K/mm3 Baso # (Auto) 0.00 L (0.01-0.08) K/mm3 Sodium 142 (136-145) mEq/L Potassium 4.1 (3.5-5.1) mEq/L Chloride 105 (98-107) mEq/L Carbon Dioxide 29 (21-32) mEq/L Anion Gap 12.1 (5-15) BUN 25 H (7-18) mg/dL Creatinine 1.4 H (0.55-1.02) mg/dL Est Cr Clr Drug Dosing 30.42 mL/min Estimated GFR (MDRD) 37 (>60) mL/min BUN/Creatinine Ratio 17.9 (14-18) Glucose 108 H (70-99) mg/dL Calcium 9.1 (8.5-10.1) mg/dL Magnesium 1.3 L (1.8-2.4) mg/dL Total Bilirubin 0.5 (0.2-1.0) mg/dL AST 18 (15-37) U/L ALT 24 (14-59) U/L Alkaline Phosphatase 76 (46-116) U/L Troponin I < 0.017 (0.00-0.056) ng/mL Total Protein 7.1 (6.4-8.2) g/dl Albumin 3.7 (3.4-5.0) g/dl Globulin 3.4 gm/dL Albumin/Globulin Ratio 1.1 (1-2) Meds: Medications Generic Name Dose Route Start Last Admin Trade Name Freq PRN Reason Stop Dose Admin Sodium Chloride 10 ml 09/25/20 10:25 09/25/20 10:39 Sodium Chloride 0.9% 10 Ml Syringe FLUSH 10 ml ASDIRECTED PRN Administration Keep Vein Open - Re-Assessments/Exams Free Text/Narrative Re-Assessment/Exam: 09/25/20 14:39 I ordered an EKG, CT of her head and labs. Her EKG shows NSR with no acute changes. Her CBC looks good. Her creatinine is elevated at 1.4. Her glucose is 108. Her magnesium is 1.3. Her troponin is negative. The CT of her head shows presumed surgery posteriorly within the brain. This is a stable finding. Mild generalized atrophy. No acute intracranial abnormality is appreciated on noncontrast head CT study. 09/25/20 15:11 I called [facility] in [place] and talked with the neurologist and she wanted an EEG and holter monitor. I have ordered both. I will have her follow up with Dr Ronquillo. Departure - Departure Time of Disposition: 15:15 Disposition: Home, Self-Care 01 Condition: Good Clinical Impression: Syncope Qualifiers: Syncope type: unspecified Qualified Code(s): R55 - Syncope and collapse - Discharge Information *PRESCRIPTION DRUG MONITORING PROGRAM REVIEWED*: Not Applicable *COPY OF PRESCRIPTION DRUG MONITORING REPORT IN PATIENT NAVARRO: Not Applicable Referrals: Alpesh Ronquillo MD [Primary Care Provider] - 1 Week Forms: ED Department Discharge Additional Instructions: Take your medications as prescribed. Wear the holter monitor for 48 hours. Try to use your cane or walker. I have ordered an EEG. Someone from our hospital will call you. Please return if you are worse. Sepsis Event Note (ED) - Evaluation Sepsis Screening Result: No Definite Risk - Focused Exam Vital Signs: Vital Signs Temp Pulse Resp BP Pulse Ox 09/25/20 09:58 96.9 F 69 16 125/60 91 L - My Orders Last 24 Hours: My Active Orders 09/25/20 10:25 Cardiac Monitoring [RC] . DIRECTED Sodium Chloride 0.9% [Saline Flush] 10 ml FLUSH ASDIRECTED PRN Peripheral IV Insertion Adult [OM.PC] Stat 09/25/20 10:26 EKG Documentation Completion [RC] STAT Peripheral IV Care [RC] . DIRECTED - Assessment/Plan Last 24 Hours: My Active Orders 09/25/20 10:25 Cardiac Monitoring [RC] . DIRECTED Sodium Chloride 0.9% [Saline Flush] 10 ml FLUSH ASDIRECTED PRN Peripheral IV Insertion Adult [OM.PC] Stat 09/25/20 10:26 EKG Documentation Completion [RC] STAT Peripheral IV Care [RC] . DIRECTED
== END 2020-09-25 15:43 | disposition home or self-care (01) ==
LOC: JD.ED 09:41
DX: R55 Syncope and collapse (principal); J44.9 Chronic obstructive pulmonary disease, unspecified; K21.9 Gastro-esophageal reflux disease without esophagitis; E11.9 Type 2 diabetes mellitus without complications; E03.9 Hypothyroidism, unspecified; Z88.0 Allergy status to penicillin; Z88.8 Allergy status to other drugs, medicaments and biological substances; Z86.73 Personal history of transient ischemic attack (TIA), and cerebral infarction without residual deficits
CPT/HCPCS: 36415; 70450; 70450-26; 71045; 71045-26; 80053; 83735; 84484; 85025; 93005; 93010; 93225; 93226; 99284; 99284-25

== ENCOUNTER 2021-10-08 12:56 | Emergency (ER) | payer MEDICARE, OTHER ==
[2021-10-08 13:45] VITALS: BP 125/74; PULSE 87
[2021-10-08] MEDS ORDERED: Acetaminophen 325 MG Tab PO ONE (14:21)
== END 2021-10-08 16:55 | disposition home or self-care (01) ==
LOC: JD.ED 12:56
DX: S42.001A Fracture of unspecified part of right clavicle, initial encounter for closed fracture (principal); J44.9 Chronic obstructive pulmonary disease, unspecified; E11.9 Type 2 diabetes mellitus without complications; E03.9 Hypothyroidism, unspecified; Z86.73 Personal history of transient ischemic attack (TIA), and cerebral infarction without residual deficits; Z88.0 Allergy status to penicillin; Z88.8 Allergy status to other drugs, medicaments and biological substances; Z79.899 Other long term (current) drug therapy; W18.30XA Fall on same level, unspecified, initial encounter
CPT/HCPCS: 73030; 99283; A9270

== ENCOUNTER 2022-04-14 15:58 | Emergency (ER) | payer MEDICARE, OTHER ==
[2022-04-14] MEDS ORDERED: HYDROmorphone 1 MG/ML Syringe IM ONE (18:54)
[2022-04-14 19:29] VITALS: BP 121/64; PULSE 82
== END 2022-04-14 19:31 | disposition home or self-care (01) ==
LOC: JD.ED 15:58
DX: S20.211A Contusion of right front wall of thorax, initial encounter (principal); S50.311A Abrasion of right elbow, initial encounter; J44.9 Chronic obstructive pulmonary disease, unspecified; K21.9 Gastro-esophageal reflux disease without esophagitis; E11.9 Type 2 diabetes mellitus without complications; E03.9 Hypothyroidism, unspecified; Z88.8 Allergy status to other drugs, medicaments and biological substances; Z88.0 Allergy status to penicillin; Z79.899 Other long term (current) drug therapy; W18.30XA Fall on same level, unspecified, initial encounter; Y92.009 Unspecified place in unspecified non-institutional (private) residence as the place of occurrence of the external cause
CPT/HCPCS: 71250; 96372; 99283; J1170

== ENCOUNTER 2023-05-05 09:46 | Emergency (ER) | payer MEDICARE, OTHER ==
[2023-05-05] MEDS ORDERED: Sodium Chloride 0.9% 10 ML Syringe FLUSH PRN (10:02)
[2023-05-05 10:34] LABS: BASOPHILS PERCENT AUTO 0.5 % (0.0-1.0); EOSINOPHILS ABSOLUTE AUTO 0.1 K/mm3 (0.0-0.4); EOSINOPHILS PERCENT AUTO 1.9 % (0.0-6.0); HEMATOCRIT 40.8 % (37.0-47.0); IMMATURE GRAN ABSOLUTE AUTO 0.03 K/mm3 (0.00-0.05); IMMATURE GRAN PERCENT AUTO 0.8 % (0.0-0.4); LYMPHOCYTES ABSOLUTE AUTO 0.8 K/mm3 (1.0-4.8); MEAN CORPUSCULAR HEMOGLOBIN 28.6 pg (28.0-32.0); MEAN CORPUSCULAR HGB CONC 31.9 g/dl (32.0-36.0); MEAN CORPUSCULAR VOLUME 89.9 fl (83.0-99.0); MEAN PLATELET VOLUME 9.4 fl (9.4-12.3); MONOCYTES ABSOLUTE AUTO 0.4 K/mm3 (0.0-0.8); MONOCYTES PERCENT AUTO 10.5 % (0.0-8.0); NEUTROPHILS ABSOLUTE AUTO 2.4 K/mm3 (1.8-7.7); NEUTROPHILS PERCENT AUTO 65.3 % (41.0-71.0); PLATELET COUNT,PLT 136 K/mm3 (150-400); RED BLOOD CELL COUNT 4.54 M/mm3 (4.10-5.30); WHITE BLOOD CELL COUNT,WBC 3.71 K/mm3 (3.9-11.3)
[2023-05-05 11:02] LABS: A/G RATIO 0.8 (1-2); ALBUMIN 3.2 g/dl (3.4-5.0); ANION GAP 12.6 (5-15); BILIRUBIN TOTAL 0.4 mg/dL (0.2-1.0); CALCIUM 9.5 mg/dL (8.5-10.1); CREATININE 1.5 mg/dL (0.55-1.02); EST CRCL DRUG DOSING (CG) 30.14 mL/min; MAGNESIUM 1.8 mg/dL (1.8-2.4); POTASSIUM,K 4.6 mEq/L (3.5-5.1)
[2023-05-05 11:34] VITALS: BP 107/63; PULSE 70
== END 2023-05-05 11:45 | disposition home or self-care (01) ==
LOC: JD.ED 09:46
DX: S00.03XA Contusion of scalp, initial encounter (principal); J44.9 Chronic obstructive pulmonary disease, unspecified; K21.9 Gastro-esophageal reflux disease without esophagitis; E11.9 Type 2 diabetes mellitus without complications; E03.9 Hypothyroidism, unspecified; Z88.8 Allergy status to other drugs, medicaments and biological substances; Z88.0 Allergy status to penicillin; Z79.899 Other long term (current) drug therapy; W18.30XA Fall on same level, unspecified, initial encounter
CPT/HCPCS: 36415; 70450; 70450-26; 80053; 83735; 85025; 99282; 99284

== ENCOUNTER 2023-06-08 10:36 | Emergency (ER) | payer MEDICARE, OTHER ==
[2023-06-08 12:24] LABS: BASOPHILS PERCENT AUTO 0.4 % (0.0-1.0); EOSINOPHILS ABSOLUTE AUTO 0.1 K/mm3 (0.0-0.4); EOSINOPHILS PERCENT AUTO 2.1 % (0.0-6.0); HEMATOCRIT 40.3 % (37.0-47.0); IMMATURE GRAN ABSOLUTE AUTO 0.01 K/mm3 (0.00-0.05); IMMATURE GRAN PERCENT AUTO 0.4 % (0.0-0.4); LYMPHOCYTES ABSOLUTE AUTO 0.6 K/mm3 (1.0-4.8); MEAN CORPUSCULAR HEMOGLOBIN 28.5 pg (28.0-32.0); MEAN CORPUSCULAR HGB CONC 32.3 g/dl (32.0-36.0); MEAN CORPUSCULAR VOLUME 88.4 fl (83.0-99.0); MEAN PLATELET VOLUME 10.4 fl (9.4-12.3); MONOCYTES ABSOLUTE AUTO 0.3 K/mm3 (0.0-0.8); MONOCYTES PERCENT AUTO 11.2 % (0.0-8.0); NEUTROPHILS ABSOLUTE AUTO 1.9 K/mm3 (1.8-7.7); NEUTROPHILS PERCENT AUTO 65.9 % (41.0-71.0); PLATELET COUNT,PLT 111 K/mm3 (150-400); RED BLOOD CELL COUNT 4.56 M/mm3 (4.10-5.30); WHITE BLOOD CELL COUNT,WBC 2.85 K/mm3 (3.9-11.3)
[2023-06-08 12:35] LABS: A/G RATIO 0.9 (1-2); ALANINE AMINOTRANSFERASE,ALT 105 U/L (14-59); ALBUMIN 3.4 g/dl (3.4-5.0); ALKALINE PHOSPHATASE 62 U/L (46-116); ANION GAP 13.6 (5-15); ASPARTATE AMNIOTRANSFERASE,AST 62 U/L (15-37); BILIRUBIN TOTAL 0.5 mg/dL (0.2-1.0); BLOOD UREA NITROGEN,BUN 21 mg/dL (7-18); C-REACTIVE PROTEIN <0.2 mg/dL (<1.0); CALCIUM 9.1 mg/dL (8.5-10.1); CARBON DIOXIDE,CO2 31 mEq/L (21-32); CHLORIDE,CL 102 mEq/L (98-107); CREATININE 1.4 mg/dL (0.55-1.02); EST CRCL DRUG DOSING (CG) 32.29 mL/min; ESTIMATED GFR 40 mL/min (>60); GLUCOSE RANDOM 97 mg/dL (70-99); POTASSIUM,K 4.6 mEq/L (3.5-5.1); PROTEIN TOTAL,TP 7.1 g/dl (6.4-8.2); SODIUM,NA 142 mEq/L (136-145)
[2023-06-08 12:50] LABS: APPEARANCE,URINE CLEAR (Clear); BILIRUBIN,URINE NEGATIVE (Negative); COLOR,URINE LIGHT YELLOW (Yellow); GLUCOSE,URINE NEGATIVE (Negative); KETONES,URINE NEGATIVE (Negative); LEUKOCYTE ESTERASE,URINE TRACE (Negative); NITRITE,URINE NEGATIVE (Negative); OCCULT BLOOD,URINE NEGATIVE (Negative); PH,URINE 6.5 (5.0-8.0); PROTEIN,URINE NEGATIVE (Negative); UROBILINOGEN,URINE 0.2 (0.2-1.0)
[2023-06-08 13:29] LABS: BACTERIA,URINE FEW /hpf (FEW); EPITHELIAL CELLS,URINE 0-5 /hpf (0-5); MUCUS,URINE FEW /hpf (FEW); RBC,URINE 0-5 /hpf (0-5)
[2023-06-08 15:31] VITALS: BP 142/70; PULSE 68
== END 2023-06-08 14:22 | disposition home or self-care (01) ==
LOC: JD.ED 10:36
DX: S09.90XA Unspecified injury of head, initial encounter (principal); N39.0 Urinary tract infection, site not specified; J44.9 Chronic obstructive pulmonary disease, unspecified; K21.9 Gastro-esophageal reflux disease without esophagitis; E11.9 Type 2 diabetes mellitus without complications; E03.9 Hypothyroidism, unspecified; Z79.899 Other long term (current) drug therapy; Z88.0 Allergy status to penicillin; Z88.8 Allergy status to other drugs, medicaments and biological substances; W18.09XA Striking against other object with subsequent fall, initial encounter
CPT/HCPCS: 36415; 70450; 70450-26; 72125; 72125-26; 80053; 81001; 85025; 86140; 87086; 87088; 87186; 99284

== ENCOUNTER 2024-06-28 12:48 | Emergency (ER) | payer MEDICARE, OTHER ==
[2024-06-28 13:08] VITALS: BP 108/62; PULSE 93
[2024-06-28 13:47] LABS: BASOPHILS PERCENT AUTO 0.2 % (0.0-1.0); EOSINOPHILS PERCENT AUTO 0.5 % (0.0-6.0); HEMATOCRIT 39.1 % (37.0-47.0); HEMOGLOBIN 12.6 gm/dl (12.0-16.0); IMMATURE GRAN ABSOLUTE AUTO 0.05 K/mm3 (0.00-0.05); IMMATURE GRAN PERCENT AUTO 0.8 % (0.0-0.4); LYMPHOCYTES ABSOLUTE AUTO 0.6 K/mm3 (1.0-4.8); LYMPHOCYTES PERCENT AUTO 9.5 % (24.0-44.0); MEAN CORPUSCULAR HEMOGLOBIN 28.6 pg (28.0-32.0); MEAN CORPUSCULAR HGB CONC 32.2 g/dl (32.0-36.0); MEAN CORPUSCULAR VOLUME 88.9 fl (83.0-99.0); MONOCYTES ABSOLUTE AUTO 0.7 K/mm3 (0.0-0.8); NEUTROPHILS ABSOLUTE AUTO 4.9 K/mm3 (1.8-7.7); PLATELET COUNT,PLT 84 K/mm3 (150-400); WHITE BLOOD CELL COUNT,WBC 6.21 K/mm3 (3.9-11.3)
[2024-06-28 14:03] LABS: SLIDE REVIEW NORMAL SMEAR
[2024-06-28 14:22] LABS: A/G RATIO 0.8 (1-2); ALBUMIN 2.8 g/dl (3.4-5.0); BILIRUBIN TOTAL 0.5 mg/dL (0.2-1.0); BUN/CREATININE RATIO 13.1 (14-18); C-REACTIVE PROTEIN 1.87 mg/dL (<0.30); CALCIUM 8.7 mg/dL (8.5-10.1); CREATININE 1.6 mg/dL (0.55-1.02); EST CRCL DRUG DOSING (CG) 29.02 mL/min; MAGNESIUM 1.3 mg/dL (1.8-2.4); PROTEIN TOTAL,TP 6.5 g/dl (6.4-8.2); TSH 2.18 uIU/mL (0.358-3.74)
[2024-06-28] MEDS: Sodium Chloride 0.9% 1,000 ML IV SCH (14:39)
[2024-06-28] MEDS: Magnesium Sulf/Wat 2 GM/50 mL 2 GM/50 ML BAG IV ONE ×2 (14:40→16:45)
[2024-06-28] MEDS ORDERED: Magnesium Sulf/Wat 2 GM/50 mL 2 GM/50 ML BAG IV SCH ×2 (14:45→16:00)
[2024-06-28 16:14] LABS: APPEARANCE,URINE CLEAR (Clear); BILIRUBIN,URINE NEGATIVE (Negative); COLOR,URINE YELLOW (Yellow); GLUCOSE,URINE NEGATIVE (Negative); KETONES,URINE NEGATIVE (Negative); LEUKOCYTE ESTERASE,URINE TRACE (Negative); NITRITE,URINE NEGATIVE (Negative); OCCULT BLOOD,URINE NEGATIVE (Negative); PH,URINE 6.5 (5.0-8.0); PROTEIN,URINE NEGATIVE (Negative); UROBILINOGEN,URINE 0.2 (0.2-1.0)
[2024-06-28 16:28] LABS: RBC,URINE 0-5 /hpf (0-5); SQUAMOUS EPITHELIAL CELLS,UR 0-5 /hpf (0-5)
[2024-06-28 16:29] LABS: BACTERIA,URINE MODERATE /hpf (FEW); MUCUS,URINE FEW /hpf (FEW)
[2024-06-28] MEDS: cefTRIAXone 2 GM in Sodium Chloride 0.9% 100 ML IV ONE (18:36)
== END 2024-06-28 19:21 | disposition home or self-care (01) ==
LOC: JD.ED 12:48
DX: R25.1 Tremor, unspecified (principal); N39.0 Urinary tract infection, site not specified; R53.1 Weakness; Z88.0 Allergy status to penicillin; Z88.8 Allergy status to other drugs, medicaments and biological substances; Z79.51 Long term (current) use of inhaled steroids; Z79.899 Other long term (current) drug therapy; Z79.890 Hormone replacement therapy; Z87.891 Personal history of nicotine dependence
CPT/HCPCS: 36415; 80053; 81001; 83735; 84443; 84484; 85025; 86140; 87086; 87088; 87186; 87428-QW; 93005; 93010; 96361; 96365; 96366; 96367; 99283; 99285-25; J0696; J3475; J7030

== ENCOUNTER 2025-01-10 07:22 | Day surgery (SDC) | payer MEDICARE, OTHER, MEDICAID ==
[~2025-01-10 07:22] MED LIST: Sodium Chloride 0.9% 10 ML Syringe FLUSH PRN; Sodium Chloride 0.9% 10 ML Syringe FLUSH SCH
[2025-01-10] MEDS: Lactated Ringers 1,000 ML IV SCH (07:50)
[2025-01-10] MEDS ORDERED: Lidocaine 1% 4 ML ONE (08:11)
[2025-01-10] MEDS ORDERED: Propofol 200 MG/20 ML SDV ONE ×3 (08:11→09:11)
[2025-01-10 12:39] VITALS: BP 124/60; PULSE 66
== END 2025-01-10 10:20 | disposition home or self-care (01) ==
LOC: JD.SDS 07:22
PROVIDERS: ATTEND Surgery
DX: K29.50 Unspecified chronic gastritis without bleeding (principal); K31.89 Other diseases of stomach and duodenum; K44.9 Diaphragmatic hernia without obstruction or gangrene; K25.4 Chronic or unspecified gastric ulcer with hemorrhage; D64.9 Anemia, unspecified; K57.30 Diverticulosis of large intestine without perforation or abscess without bleeding; I12.9 Hypertensive chronic kidney disease with stage 1 through stage 4 chronic kidney disease, or unspecified chronic kidney disease; E11.22 Type 2 diabetes mellitus with diabetic chronic kidney disease; N18.9 Chronic kidney disease, unspecified; E03.9 Hypothyroidism, unspecified; E66.811 Obesity, class 1; Z88.0 Allergy status to penicillin; Z88.8 Allergy status to other drugs, medicaments and biological substances; Z79.82 Long term (current) use of aspirin; Z68.41 Body mass index [BMI] 40.0-44.9, adult; Z79.899 Other long term (current) drug therapy; Z79.890 Hormone replacement therapy
CPT/HCPCS: 43239; 45378; J2003; J2704; J7120; 00813; 99100